=== PATIENT | female | born 1975 | race Caucasian/White ===

== ENCOUNTER 2022-07-12 17:23 | Emergency (ER) | payer MEDICAID ==
[2022-07-12] MEDS ORDERED: Acetaminophen/HYDROcodone 325-5 MG Tab PO ONE (17:24)
[2022-07-12] MEDS: HYDROmorphone 2 MG/ML SDV IM ONE (17:40)
[2022-07-12 17:50] VITALS: BP 115/83; PULSE 81
[2022-07-12] MEDS: Ketorolac 30 MG/ML SDV IM ONE (18:25)
== END 2022-07-12 19:15 | disposition home or self-care (01) ==
LOC: FB.ED 17:23
DX: M25.551 Pain in right hip (principal); Z88.0 Allergy status to penicillin; Z91.040 Latex allergy status; W19.XXXA Unspecified fall, initial encounter
CPT/HCPCS: 73502-RT; 96372; 99283; A9270-GY; J1170; J1885

== ENCOUNTER 2022-07-13 12:26 | Emergency (ER) | payer MEDICAID ==
[2022-07-13] MEDS ORDERED: Ibuprofen 800 MG Tab PO ONE (12:48)
[2022-07-13] MEDS ORDERED: Acetaminophen 500 MG Tab PO ONE (12:48)
[2022-07-13] MEDS ORDERED: Cyclobenzaprine 10 MG Tab PO ONE (12:48)
[2022-07-13 17:45] VITALS: BP 106/58; PULSE 63
== END 2022-07-13 17:25 | disposition home or self-care (01) ==
LOC: FB.ED 12:26
DX: M97.02XA Periprosthetic fracture around internal prosthetic left hip joint, initial encounter (principal); F17.210 Nicotine dependence, cigarettes, uncomplicated; Z88.0 Allergy status to penicillin; Z91.040 Latex allergy status; Z79.899 Other long term (current) drug therapy; W19.XXXA Unspecified fall, initial encounter
CPT/HCPCS: 72131; 72192; 99284; A9270

== ENCOUNTER 2024-04-12 03:47 | Emergency (ER) | payer MEDICARE, MEDICAID ==
[2024-04-12] MEDS: Acetaminophen/HYDROcodone 325-10 MG Tab PO ONE (04:26)
[2024-04-12] MEDS: Acetaminophen/HYDROcodone 325-5 MG Tab PO ONE (04:30)
[2024-04-12] MEDS: Ketorolac 30 MG/ML SDV IM ONE (04:30)
[2024-04-12 06:56] VITALS: BP 111/69; PULSE 79
== END 2024-04-12 06:22 | disposition home or self-care (01) ==
LOC: FB.ED 03:47
DX: S70.01XA Contusion of right hip, initial encounter (principal); F17.210 Nicotine dependence, cigarettes, uncomplicated; Z79.899 Other long term (current) drug therapy; Z88.0 Allergy status to penicillin; Z88.1 Allergy status to other antibiotic agents; Z91.040 Latex allergy status; Z96.641 Presence of right artificial hip joint; W01.0XXA Fall on same level from slipping, tripping and stumbling without subsequent striking against object, initial encounter
CPT/HCPCS: 73502-RT; 96372; 99284; A9270-GY; J1885

== ENCOUNTER 2024-04-23 11:21 | Emergency (ER) | payer MEDICAID ==
[2024-04-23 11:30] VITALS: BP 113/71; PULSE 86
== END 2024-04-23 14:30 | disposition home or self-care (01) ==
LOC: FB.ED 11:21
DX: S32.41 Fracture of anterior wall of acetabulum (principal); Z88.0 Allergy status to penicillin; Z91.040 Latex allergy status; Z79.810 Long term (current) use of selective estrogen receptor modulators (SERMs); Z79.899 Other long term (current) drug therapy; W19.XXXD Unspecified fall, subsequent encounter
CPT/HCPCS: 73700-RT; 99283

== ENCOUNTER 2025-03-20 10:42 | Emergency (ER) | payer MEDICAID ==
[2025-03-20 13:18] VITALS: BP 102/62; PULSE 62
== END 2025-03-20 12:55 | disposition home or self-care (01) ==
LOC: FB.ED 10:42
DX: S70.01XA Contusion of right hip, initial encounter (principal); F17.210 Nicotine dependence, cigarettes, uncomplicated; Z88.0 Allergy status to penicillin; Z91.040 Latex allergy status; Z79.899 Other long term (current) drug therapy; Z90.710 Acquired absence of both cervix and uterus; W19.XXXA Unspecified fall, initial encounter
CPT/HCPCS: 72131; 72192; 99283